=== PATIENT | female | born 1940 | race Two or more races ===

== ENCOUNTER 2018-01-16 05:30 | Day surgery (SDC) | payer OTHER ==
[~2018-01-16 05:30] MED LIST: AMLODIPINE BESYL5 MG PO; BACTRIM DS TAB1 EACH PO; SYNTHROID125 MCG PO
[2018-01-16] MEDS ORDERED: KEFLEX500 MG PO (08:53)
[2018-01-16] MEDS ORDERED: URIN D.S. TABL1 EACH PO (08:54)
== END 2018-01-16 10:55 | disposition home or self-care (01) ==
LOC: CIR.AMB 05:30
DX: C67.2 Malignant neoplasm of lateral wall of bladder (principal); C68.0 Malignant neoplasm of urethra

== ENCOUNTER → 2018-02-14 | Day surgery (SDC) | payer OTHER ==
[~2018-02-14] MED LIST changes: +KEFLEX500 MG PO; +LEVAQUIN500 MG PO; +TRAMADOL HCL50 MG PO; +URIN D.S. TABL1 EACH PO
== END | disposition home or self-care (01) ==
LOC: ADM 02-07 12:15 → CIR.AMB 02-13 07:45
DX: N30.10 Interstitial cystitis (chronic) without hematuria (principal)

== ENCOUNTER → 2018-03-30 | Day surgery (SDC) | payer OTHER ==
[~2018-03-30] MED LIST changes: +PROBIOTIC1 EAC1 PO; +PYRIDIUM100 M1 PO
== END | disposition home or self-care (01) ==
LOC: CIR.AMB 07:39
DX: C67.2 Malignant neoplasm of lateral wall of bladder (principal); C67.3 Malignant neoplasm of anterior wall of bladder; N30.00 Acute cystitis without hematuria; N30.80 Other cystitis without hematuria

== ENCOUNTER 2024-08-21 06:44 | Day surgery (SDC) | payer OTHER ==
[2024-08-21] MEDS ORDERED: fentaNYL CITRATE 50 MCG/ML AMPUL IV PUSH ONE (10:45)
[2024-08-21] MEDS ORDERED: ONDANSETRON HCL 2 MG/ML VIAL IV ONE (10:45)
[2024-08-21] MEDS ORDERED: DIPHENHYDRAMINE HCL 50 MG/ML VIAL 1ML IV ONE (10:45)
[2024-08-21] MEDS ORDERED: MIDAZOLAM HCL 2 MG/2 ML VIAL IV ONE (10:45)
== END 2024-08-21 12:05 | disposition home or self-care (01) ==
LOC: AMB-ENDOS 06:44
PROVIDERS: ATTEND Colon & Rectal Surgery
DX: K62.1 Rectal polyp (principal); K57.30 Diverticulosis of large intestine without perforation or abscess without bleeding; K63.5 Polyp of colon